=== PATIENT | female | born 1975 | race Caucasian/White ===

== ENCOUNTER 2017-12-29 12:56 | Inpatient (IN) | payer OTHER ==
[~2017-12-29] VITALS: Ht 165.1 cm; Wt 96.6 kg
[~2017-12-29 12:56] MED LIST: BENTYL10 MG PO; COLACE100 MG PO; MOTRIN800 MG PO
[2017-12-29 14:33] LABS: HEMATOCRIT 43.1 % (36.0-46.0); HEMOGLOBIN 14.6 G/DL (11.9-15.5); MCH 27.1 PG (29.0-34.0); MCHC 33.9 G/DL (30.0-36.0); MCV 80.1 FL (83-99); PLATELET COUNT 274 K/uL (156-360); RBC DIS.WIDTH-SD 40.8 % (39-53); RED BLOOD COUNT 5.38 M/uL (3.80-5.20); WHITE BLOOD COUNT 13.1 K/uL (4.1-10.2)
[2017-12-29 14:44] LABS: CHLORIDE 104 mEq/L (99-109); POTASSIUM 3.3 mEq/L (3.7-5.4); SODIUM 140 mEq/L (136-147)
[2017-12-29 14:46] LABS: GLUCOSE 98 mg/dL (70-99)
[2017-12-29 14:50] LABS: CREATININE 0.7 mg/dL (0.6-1.3); GFR ESTIMATE (CALCULATED) > 59 mL/min/
[2017-12-29 14:51] LABS: UREA NITROGEN (BUN) 5 mg/dL (9-23)
[2017-12-29] MEDS ORDERED: OMEPRAZOLE40 M1 PO (17:46)
[2017-12-29] MEDS ORDERED: NEURONTIN600 MG PO (17:46)
[2017-12-29] MEDS ORDERED: CYMBALTA20 MG PO (17:46)
[2017-12-29] MEDS ORDERED: SINGULAIR10 MG PO (17:47)
[2017-12-29] MEDS ORDERED: ULTRAM50 MG PO (17:47)
[2017-12-29] MEDS ORDERED: ZYRTEC5 MG PO (17:47)
[2017-12-29] MEDS ORDERED: PRAVACHOL20 MG PO (17:48)
[2017-12-29 18:36] VITALS: BP 144/78
[2017-12-29 19:20] VITALS: BP 136/79
[2017-12-29 23:55] VITALS: BP 136/79
[2017-12-30 03:37] VITALS: BP 137/79
[2017-12-30 06:43] VITALS: BP 134/82
[2017-12-30 07:01] LABS: BASOPHIL (%) 0.5 % (0-1); BASOPHIL COUNT 0.1 K/uL (0-0.1); EOSINOPHIL (%) 2.7 % (0-5); EOSINOPHIL COUNT 0.3 K/uL (0-0.3); HEMATOCRIT 39.5 % (36.0-46.0); HEMOGLOBIN 13.2 G/DL (11.9-15.5); IMMATURE GRANULOCYTE (%) 0.4 % (0.0-0.7); LYMPHOCYTE (%) 32.6 % (15-42); LYMPHOCYTE COUNT 3.3 K/uL (1.0-2.8); MCH 27.2 PG (29.0-34.0); MCHC 33.4 G/DL (30.0-36.0); MCV 81.3 FL (83-99); MONOCYTE (%) 5.4 % (3-12); MONOCYTE COUNT 0.5 K/uL (0-0.8); NEUTROPHIL (%) 58.4 % (45-76); NEUTROPHIL COUNT 5.8 K/uL (1.8-6.4); PLATELET COUNT 244 K/uL (156-360); RBC DIS.WIDTH-CV 14.2 % (11.8-14.6); RBC DIS.WIDTH-SD 41.6 % (39-53); RED BLOOD COUNT 4.86 M/uL (3.80-5.20)
[2017-12-30 07:25] LABS: CHLORIDE 107 MEQ/L (99-109); CREATININE 0.6 MG/DL (0.6-1.3); GFR ESTIMATE (CALCULATED) > 59 mL/min/; GLUCOSE 97 mg/dL (70-99); POTASSIUM 3.6 MEQ/L (3.7-5.4); SODIUM 138 MEQ/L (136-147); UREA NITROGEN (BUN) 5 mg/dL (9-23)
[2017-12-30 12:04] VITALS: BP 139/67
[2017-12-30 16:09] VITALS: BP 140/80
[2017-12-30 19:05] VITALS: BP 136/66
[2017-12-30 23:02] VITALS: BP 137/72
[2017-12-31 04:00] VITALS: BP 139/78
[2017-12-31 07:02] LABS: HEMOGLOBIN 13.5 G/DL (11.9-15.5); MCH 26.6 PG (29.0-34.0); MCHC 32.9 G/DL (30.0-36.0); MCV 80.7 FL (83-99); PLATELET COUNT 250 K/uL (156-360); RBC DIS.WIDTH-CV 14.1 % (11.8-14.6); RED BLOOD COUNT 5.08 M/uL (3.80-5.20); WHITE BLOOD COUNT 11.5 K/uL (4.1-10.2)
[2017-12-31 08:27] VITALS: BP 157/80
[2017-12-31] MEDS ORDERED: PEN-VEE K,VEET500 MG PO (11:15)
== END 2017-12-31 12:00 | disposition home or self-care (01) | DRG 603 ==
LOC: EME 12:56 → EDOF 17:26 → ENRESERV 17:27 → 2EASTP 18:12
PROVIDERS: Hospitalist; Internal Medicine; Nurse Practitioner Family
DX: L03.213 Periorbital cellulitis (principal); L02.01 Cutaneous abscess of face; L03.211 Cellulitis of face; K02.9 Dental caries, unspecified; E78.5 Hyperlipidemia, unspecified; K21.9 Gastro-esophageal reflux disease without esophagitis; F17.210 Nicotine dependence, cigarettes, uncomplicated
CPT/HCPCS: 70487; 80048; 85025; 85027; 87040; 99281; 99285; J0295; J1650; J2270; J7030; J7050